=== PATIENT | female | born 1980 | race Caucasian/White ===

== ENCOUNTER 2018-10-26 00:09 | Emergency (ER) | payer BC ==
[~2018-10-26] VITALS: Ht 172.7 cm; Wt 113.4 kg
[2018-10-26] MEDS ORDERED: XANAX1 MG PO (00:54)
[2018-10-26] MEDS ORDERED: PROZAC20 MG PO (00:54)
[2018-10-26] MEDS ORDERED: TRAZODONE 150150 M1 PO (00:55)
[2018-10-26] MEDS ORDERED: NORTRIPTYLINE H25 M3 PO (00:55)
[2018-10-26] MEDS ORDERED: OMEPRAZOLE40 MG PO (00:55)
[2018-10-26] MEDS ORDERED: MINIPRESS2 MG PO (00:56)
[2018-10-26] MEDS ORDERED: LINZESS290 MCG PO (00:56)
[2018-10-26 03:59] VITALS: BP 132/87
== END 2018-10-26 04:12 | disposition home or self-care (01) ==
LOC: ER 00:09
DX: M25.561 Pain in right knee (principal); J45.909 Unspecified asthma, uncomplicated; Z88.1 Allergy status to other antibiotic agents; Z88.4 Allergy status to anesthetic agent; Z88.0 Allergy status to penicillin; Z88.2 Allergy status to sulfonamides; Z86.718 Personal history of other venous thrombosis and embolism

== ENCOUNTER 2018-11-06 21:52 | Emergency (ER) | payer BC ==
[~2018-11-06] VITALS: Ht 172.7 cm; Wt 113.4 kg
[~2018-11-06 21:52] MED LIST: LINZESS290 MCG PO; MINIPRESS2 MG PO; NORTRIPTYLINE H25 M3 PO; OMEPRAZOLE40 MG PO; PROZAC20 MG PO; TRAZODONE 150150 M1 PO; XANAX1 MG PO
[2018-11-06] MEDS ORDERED: RELPAX40 MG PO (22:34)
[2018-11-07 00:21] VITALS: BP 127/88
== END 2018-11-07 00:22 | disposition home or self-care (01) ==
LOC: ER 21:52
DX: M79.605 Pain in left leg (principal); G43.909 Migraine, unspecified, not intractable, without status migrainosus; J45.909 Unspecified asthma, uncomplicated; Z86.718 Personal history of other venous thrombosis and embolism; Z86.711 Personal history of pulmonary embolism; Z88.1 Allergy status to other antibiotic agents; Z88.5 Allergy status to narcotic agent; Z88.0 Allergy status to penicillin; Z88.2 Allergy status to sulfonamides

== ENCOUNTER 2019-03-02 20:24 | Emergency (ER) | payer OTHER ==
[~2019-03-02] VITALS: Ht 172.7 cm; Wt 111.1 kg
[~2019-03-02 20:24] MED LIST changes: +RELPAX40 MG PO
[2019-03-02] MEDS ORDERED: NORCO 5-325 TA1 EAC1 PO (21:57)
[2019-03-02] MEDS ORDERED: NORFLEX100 MG PO (22:47)
[2019-03-02 23:09] VITALS: BP 110/86
== END 2019-03-02 23:18 | disposition home or self-care (01) ==
LOC: ER 20:24
DX: S40.022A Contusion of left upper arm, initial encounter (principal); S40.021A Contusion of right upper arm, initial encounter; J45.909 Unspecified asthma, uncomplicated; Z86.718 Personal history of other venous thrombosis and embolism; Z86.711 Personal history of pulmonary embolism; Z88.0 Allergy status to penicillin; Z88.1 Allergy status to other antibiotic agents; Z88.2 Allergy status to sulfonamides; Z88.6 Allergy status to analgesic agent; W10.8XXA Fall (on) (from) other stairs and steps, initial encounter; Y93.89 Activity, other specified; Y92.89 Other specified places as the place of occurrence of the external cause; Y99.8 Other external cause status

== ENCOUNTER 2019-03-06 15:23 | Emergency (ER) | payer OTHER ==
[~2019-03-06] VITALS: Ht 172.7 cm; Wt 111.1 kg
[~2019-03-06 15:23] MED LIST changes: +NORCO 5-325 TA1 EAC1 PO; +NORFLEX100 MG PO
[2019-03-06] MEDS ORDERED: PROZAC40 MG PO (16:26)
[2019-03-06] MEDS ORDERED: ENDOCET 5-3251 EACH PO (17:23)
[2019-03-06 19:15] VITALS: BP 123/91
== END 2019-03-06 19:17 | disposition home or self-care (01) ==
LOC: ER 15:23
DX: S32.010A Wedge compression fracture of first lumbar vertebra, initial encounter for closed fracture (principal); S93.491A Sprain of other ligament of right ankle, initial encounter; J45.909 Unspecified asthma, uncomplicated; Z86.718 Personal history of other venous thrombosis and embolism; Z86.711 Personal history of pulmonary embolism; Z88.6 Allergy status to analgesic agent; Z88.0 Allergy status to penicillin; Z88.2 Allergy status to sulfonamides; W10.9XXA Fall (on) (from) unspecified stairs and steps, initial encounter; Y92.009 Unspecified place in unspecified non-institutional (private) residence as the place of occurrence of the external cause; Y93.89 Activity, other specified; Y99.8 Other external cause status

== ENCOUNTER 2019-04-26 15:06 | Emergency (ER) | payer OTHER ==
[~2019-04-26] VITALS: Ht 172.7 cm; Wt 111.1 kg
[~2019-04-26 15:06] MED LIST changes: +ENDOCET 5-3251 EACH PO; +PROZAC40 MG PO
--- NOTE | 2019-04-26 15:23 | EKG ---
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 : 1980 Requested By: Yanci Barba Order Number: [id number] MD: Cody Sanchez Measurements Intervals [place] Rate: 93 P: 58 SD: 151 QRS: 5 QRSD: 91 T: -5 QT: 381 QTc: 474 Interpretive Statements Sinus rhythm Low voltage, precordial leads Abnormal R-wave progression, early transition Borderline T abnormalities, anterior leads No previous ECG available for comparison Electronically Signed On 04-26-2019 15:23:30 ELECTRONIC TRAIN CONTROL TECHNICIAN by Cody Sanchez [email or web address] <ELECTRONICALLY SIGNED> By: Cody Sanchez MD 04/26/19 1523 1512 1512 MD RUBIN Álvarez
[2019-04-26 15:51] LABS: HEMATOCRIT 31.4 % (37.0-47.0); MCH 24.6 pg (26.0-34.0); MCHC 31.7 g/dL (28.0-37.0); MCV 77.6 fL (80.0-100.0); RBC 4.05 mil/uL (4.20-5.00); RDW 16.2 % (10.5-14.5); WBC 7.3 thou/uL (4.0-11.0)
[2019-04-26] MEDS ORDERED: ROXICODONE5 M2 PO (15:52)
[2019-04-26 15:58] LABS: ANION GAP 8 mmol/L (7-16); BUN 11 mg/dL (7-18); CALCIUM 9.9 mg/dL (8.5-10.1); CHLORIDE 101 mmol/L (98-107); CO2 27 mmol/L (21-32); GLUCOSE 96 mg/dL (74-106); POTASSIUM 3.6 mmol/L (3.5-5.1); SODIUM 136 mmol/L (136-145)
[2019-04-26 16:07] LABS: TROPONIN-I <0.06 ng/mL (<0.06)
[2019-04-26] MEDS ORDERED: LOVENOX100 MG/1 M SUBQ (17:19)
[2019-04-26 17:43] VITALS: BP 119/66
== END 2019-04-26 17:45 | disposition home or self-care (01) ==
LOC: ER 15:06
PROVIDERS: Emergency Medicine
DX: I82.622 Acute embolism and thrombosis of deep veins of left upper extremity (principal); J45.909 Unspecified asthma, uncomplicated; Z86.711 Personal history of pulmonary embolism; Z86.718 Personal history of other venous thrombosis and embolism; Z88.0 Allergy status to penicillin; Z88.2 Allergy status to sulfonamides; Z88.6 Allergy status to analgesic agent

== ENCOUNTER 2020-09-21 22:46 | Emergency (ER) | payer OTHER ==
[~2020-09-21] VITALS: Ht 172.7 cm; Wt 117.9 kg
[~2020-09-21 22:46] MED LIST changes: +LOVENOX100 MG/1 M SUBQ; +ROXICODONE5 M2 PO
[2020-09-21] MEDS ORDERED: EFFEXOR XR150 MG PO (22:58)
[2020-09-21 23:57] LABS: ABSOLUTE NEUTROPHILS 9.6 thou/uL (1.4-8.2); BASOPHILS 0.7 % (0.0-2.0); EOSINOPHILS 3.6 % (0.0-3.0); HEMATOCRIT 36.6 % (37.0-47.0); LYMPHOCYTES 16.5 % (24.0-44.0); MCH 28.9 pg (26.0-34.0); MCHC 32.7 g/dL (28.0-37.0); MCV 88.5 fL (80.0-100.0); MONOCYTES 6.7 % (1.0-8.0); PLATELET COUNT 420 thou/uL (150-400); POLYS 72.5 % (36.0-66.0); RBC 4.13 mil/uL (4.20-5.00); RDW 14.8 % (10.5-14.5); WBC 13.2 thou/uL (4.0-11.0)
[2020-09-22] LABS: ANION GAP 11 mmol/L (7-16); BUN 15 mg/dL (7-18); CALCIUM 8.9 mg/dL (8.5-10.1); CHLORIDE 102 mmol/L (98-107); CO2 28 mmol/L (21-32); GLUCOSE 103 mg/dL (74-106); POTASSIUM 3.9 mmol/L (3.5-5.1); SODIUM 141 mmol/L (136-145)
[2020-09-22 00:03] LABS: APTT 24.5 Seconds (24.5-32.8); D-DIMER 0.29 ug/mLFEU (0.19-0.50); INR 0.95; PROTIME 10.4 Seconds (10.5-12.1)
[2020-09-22 00:09] LABS: ALBUMIN 3.5 g/dL (3.4-5.0); SGOT 31 U/L (15-37); SGPT 59 U/L (14-59); TOTAL BILIRUBIN 0.4 mg/dL (0.2-1.0); TOTAL PROTEIN 7.7 g/dL (6.4-8.2); TROPONIN-I <0.06 ng/mL (<0.06)
[2020-09-22 00:37] VITALS: BP 127/78
--- NOTE | 2020-09-22 08:45 | EKG ---
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 french : 1980 Requested By: Yung Young Order Number: [id number] MD: Po Traore Measurements Intervals [place] Rate: 121 P: 72 RI: 163 QRS: 64 QRSD: 84 T: 46 QT: 334 QTc: 474 Interpretive Statements Sinus tachycardia Low voltage Baseline wander in lead(s) I,II,aVR,aVL,aVF,V1,V2,V3,V6 Compared to ECG 04/26/2019 15:12:55 T-wave abnormality no longer present Electronically Signed On 09-22-2020 8:44:58 CDT by Po Traore [email or web address] <ELECTRONICALLY SIGNED> By: Po Traore MD, [facility] 09/22/20 0844 2255 2255 Po Traore MD, [facility] /EPI
== END 2020-09-22 00:40 | disposition home or self-care (01) ==
LOC: ER 22:46
PROVIDERS: Emergency Medicine
DX: R07.89 Other chest pain (principal); J45.909 Unspecified asthma, uncomplicated; Z88.1 Allergy status to other antibiotic agents; Z88.0 Allergy status to penicillin; Z88.2 Allergy status to sulfonamides; Z79.899 Other long term (current) drug therapy; Z86.718 Personal history of other venous thrombosis and embolism